=== PATIENT | female | born 1955 | race Caucasian/White ===

== ENCOUNTER 2016-05-31 22:23 | Emergency (ER) | payer MEDICAID ==
[2016-05-31] MEDS ORDERED: LIPITOR40 M1 PO (22:42)
[2016-05-31] MEDS ORDERED: ASPIRIN81 M1 PO (22:43)
[2016-05-31] MEDS ORDERED: AMARYL4 M1 PO (22:43)
[2016-05-31] MEDS ORDERED: GLUCOPHAGE1000 M1 PO (22:43)
[2016-05-31] MEDS ORDERED: SERTRALINE HCL50 M4 PO (22:43)
[2016-05-31] MEDS ORDERED: ZESTORETIC 20-1 EAC3 PO (22:44)
[2016-05-31] MEDS ORDERED: PENICILLIN V P500 M1 PO (23:06)
== END 2016-05-31 23:15 ==
LOC: EDMED 22:23
DX: J02.9 Acute pharyngitis, unspecified (principal)